=== PATIENT | male | born 1955 | race Caucasian/White ===

== ENCOUNTER 2017-01-12 17:57 | Emergency (ER) | payer OTHER ==
[~2017-01-12] VITALS: Ht 182.9 cm; Wt 109.5 kg
[~2017-01-12 17:57] MED LIST: ACTOS30 MG PO; ASPIR 8181 M1 PO; ASPIR-LOW81 MG PO; ASPIRIN81 M2 PO; BACTRIM,SEPT1 TABLET PO; BICITRA SOLUTI473 ML PO; CARDIZEM CD,CA240 MG PO; CARDIZEM CD120 MG PO; CARDIZEM CD240 MG PO; CELLCEPT250 MG PO; CELLCEPT500 MG PO; CIPROFLOXACIN500 M1 PO; CITRATE OF MAG296 ML PO; CRESTOR10 MG PO; CRESTOR40 MG PO; CYCLOBENZAPRINE10 MG PO; DIABETA5 MG PO; DIAZEPAM5 MG PO; DILAUDID2 MG PO; DIOVAN320 MG PO; FENOFIBRATE40 MG PO; FISH OIL 1,0001 EAC7 PO; GABAPENTIN300 MG PO; HUMALOG100 UNIT/2 SQ; IRON55 MG PO; KEFLEX500 MG PO; LANTUS (UNITS)1 UNIT SC; LANTUS 3 M100 UNITS/ SC; LANTUS 3 M100 UNITS1; LANTUS 3 M100 UNITS1 SC; LANTUS 3 M100 UNITS1 SQ; LASIX20 MG PO; LEXAPRO10 MG PO; LEXAPRO20 MG PO; LISINOPRIL5 MG PO; LOPRESSOR25 MG PO; LOVAZA1 GM PO; METFORMIN HCL500 MG PO; MIRALAX17 GM PO; MULTIVITAMIN1 EAC2 PO; MYFORTIC360 MG PO; NOVOLOG 10100 UNITS/ SC; NOVOLOG MI100 UNIT/4 SQ; NOVOLOG MI100 UNIT/M PO; NOVOLOG PE100 UNITS/ SC; NYSTATIN100000 UN1 PO; OXYCODONE HCL15 MG PO; OXYCODONE-APAP1 EACH PO; OXYCONTIN20 MG PO; OXYCONTIN30 MG PO; OXYCONTIN40 MG PO; PEPCID20 MG PO; PRAVASTATIN SOD40 MG PO; PRENATAL1 EACH PO; PRILOSEC20 MG PO; PROCRIT20000 UNIT IV; PROGRAF1 MG PO; Prograf PO; ROCALTROL0.25 MCG PO; ROCALTROL0.5 MCG PO; Rocaltrol PO; SENNA PLUS TAB1 EACH PO; SENOKOT,SENN1 TABLET PO; TACROLIMUS ANHYD1 MG PO; THERAGRAN1 TABLET PO; TRICOR145 MG PO; TRICOR48 MG PO; VALCYTE450 MG PO; VICODIN ES 7.51 EACH PO; VICODIN ES 71 TABLET PO; VITAMIN D5000 UNIT PO; ZOFRAN ODT4 MG PO
[2017-01-12 19:06] LABS: HEMATOCRIT 35.2 % (38.0-50.0); MCH 26.6 PG (29.0-34.0); MCHC 34.9 G/DL (30.0-36.0); MEAN PLAT.VOLUME 10.4 uM^3 (9.0-12.4); PLATELET COUNT 174 K/uL (156-360); RBC DIS.WIDTH-CV 15.4 % (11.8-14.6); RBC DIS.WIDTH-SD 41.5 % (39-53); RED BLOOD COUNT 4.63 M/uL (4.00-5.50); WHITE BLOOD COUNT 7.1 K/uL (4.1-10.2)
[2017-01-12 19:15] LABS: CHLORIDE 95 mEq/L (99-109); POTASSIUM 4.9 mEq/L (3.7-5.4); SODIUM 130 mEq/L (136-147)
[2017-01-12 19:19] LABS: ANION GAP 15 MEQ/L (2-14); TOTAL BILIRUBIN 0.5 mg/dL (0.0-1.0)
[2017-01-12 19:21] LABS: ALKALINE PHOSPHATASE 157 IU/L (3-129); GFR ESTIMATE (CALCULATED) 35 mL/min/
[2017-01-12 19:22] LABS: UREA NITROGEN (BUN) 33 mg/dL (9-23)
[2017-01-12 19:24] LABS: LIPASE 70 U/L (1.0-51.0)
[2017-01-12 19:35] LABS: GLUCOSE 659 mg/dL (70-99)
[2017-01-12 22:03] LABS: ADD MIUA? YES; BILIRUBIN NEGATIVE; BLOOD SMALL; COLOR YELLOW ((YELLOW)); GLUCOSE (STRIP) >=500; KETONES 5; LEUKOCYTES NEGATIVE; NITRITE NEGATIVE; PROTEIN (STRIP) 100; SPECIFIC GRAVITY 1.026 (1.000-1.030); UROBILINOGEN 0.2 MG/DL (0.2-1.0)
[2017-01-12 22:50] LABS: BACTERIA NONE SEEN /HPF; EPITHELIAL CELLS RARE /HPF; HYALINE CASTS 0-5 /LPF; MUCUS NONE SEEN /LPF; RED BLOOD CELLS 0-5 /HPF (0-5); UCUL ADDED? NO; WHITE BLOOD CELLS 0-5 /HPF (0-5)
[2017-01-12 23:17] LABS: CARBON DIOXIDE (BICARBONATE) 22.7 MEQ/L (20-31)
[2017-01-13 01:22] LABS: POINT-OF-CARE METER ID UU13113702
[2017-01-13 02:21] LABS: CHLORIDE 103 mEq/L (99-109); POTASSIUM 4.2 mEq/L (3.7-5.4); SODIUM 135 mEq/L (136-147)
[2017-01-13 02:23] LABS: GLUCOSE 387 mg/dL (70-99)
[2017-01-13 02:24] LABS: ANION GAP 12 MEQ/L (2-14)
[2017-01-13 02:27] LABS: GFR ESTIMATE (CALCULATED) 44 mL/min/
[2017-01-13 02:28] LABS: UREA NITROGEN (BUN) 31 mg/dL (9-23)
[2017-01-13 05:08] LABS: POINT-OF-CARE METER ID UU13113702
[2017-01-13 05:44] VITALS: BP 190/89
[2017-01-14 12:30] LABS: POINT-OF-CARE METER ID UU13113778
[2017-01-14 12:30] LABS: POINT-OF-CARE METER ID UU13113702; POINT-OF-CARE USER ID HMLKAV
== END 2017-01-13 05:45 | disposition home or self-care (01) ==
LOC: EME 17:57
PROVIDERS: Emergency Medicine
DX: E11.65 Type 2 diabetes mellitus with hyperglycemia (principal); E86.0 Dehydration; E78.5 Hyperlipidemia, unspecified; Z94.0 Kidney transplant status; Z87.891 Personal history of nicotine dependence
CPT/HCPCS: 80048; 80053; 81003; 82010; 82803; 82948; 83690; 85027; 99281; 99285; J7030

== ENCOUNTER 2017-03-31 02:00 | Emergency (ER) | payer OTHER ==
[~2017-03-31] VITALS: Ht 182.9 cm; Wt 116.5 kg
[2017-03-31 05:49] VITALS: BP 123/64
== END 2017-03-31 05:51 | disposition home or self-care (01) ==
LOC: EME 02:00
DX: M54.5 Low back pain (principal); G89.29 Other chronic pain; R11.0 Nausea; I10 Essential (primary) hypertension; E78.5 Hyperlipidemia, unspecified; Z94.0 Kidney transplant status; Z87.891 Personal history of nicotine dependence
CPT/HCPCS: 81003; 99281; 99285; J1170

== ENCOUNTER 2017-06-28 15:37 | Inpatient (IN) | payer OTHER ==
[~2017-06-28] VITALS: Ht 175.3 cm; Wt 113.0 kg
[2017-06-28 18:44] LABS: EOSINOPHIL (%) 0 % (0-5); IMMATURE GRANULOCYTE (%) 0.4 % (0.0-0.7); LYMPHOCYTE COUNT 0.8 K/uL (1.0-2.8); MCH 25.5 PG (29.0-34.0); MCV 82.4 FL (86-99); MEAN PLAT.VOLUME 10.1 uM^3 (9.0-12.4); MONOCYTE (%) 4.2 % (3-12); MONOCYTE COUNT 0.4 K/uL (0-0.8); NEUTROPHIL (%) 86.8 % (45-76); PLATELET COUNT 430 K/uL (156-360); RBC DIS.WIDTH-SD 45.3 % (39-53); RED BLOOD COUNT 3.64 M/uL (4.00-5.50); WHITE BLOOD COUNT 9.2 K/uL (4.1-10.2)
[2017-06-28 18:50] LABS: INTER. NORMALIZED RATIO 1.5; PROTHROMBIN TIME 17.3 SEC (10.2-12.9)
[2017-06-28 18:52] LABS: CARBON DIOXIDE (BICARBONATE) 17.9 MEQ/L (20-31)
[2017-06-28 18:55] LABS: CHLORIDE 100 mEq/L (99-109); POTASSIUM 4.3 mEq/L (3.7-5.4); SODIUM 139 mEq/L (136-147)
[2017-06-28 18:59] LABS: ANION GAP 26 MEQ/L (2-14); TOTAL BILIRUBIN 0.6 mg/dL (0.0-1.0)
[2017-06-28 19:01] LABS: ALKALINE PHOSPHATASE 162 IU/L (3-129); GFR ESTIMATE (CALCULATED) 44 mL/min/
[2017-06-28 19:02] LABS: UREA NITROGEN (BUN) 25 mg/dL (9-23)
[2017-06-28 19:04] LABS: CREATINE KINASE 38 IU/L (1-294); TOTAL CK 38 IU/L (1-294); TROP-I INTERPRETATION NEGATIVE; TROPONIN-I < 0.01 ng/mL (0.0-0.30)
[2017-06-28 19:25] LABS: GLUCOSE 553 mg/dL (70-99)
[2017-06-28] MEDS ORDERED: GABAPENTIN300 MG PO (20:05)
[2017-06-28] MEDS ORDERED: OXYCONTIN30 MG PO (20:06)
[2017-06-28] MEDS ORDERED: DILTIAZEM 24HR120 MG PO (20:08)
[2017-06-28 21:03] LABS: SAMPLE HEMOLYSIS CHECK 0; SAMPLE ICTERIC CHECK 0; SAMPLE LIPEMIA CHECK 0
[2017-06-28 21:13] LABS: Estimated Average Glucose 237 mg/dL (70-123); HEMOGLOBIN A1c (GLYCOHEMOGLOB) 9.9 % HGB (Below 5.7)
[2017-06-28 22:00] VITALS: BP 221/86
[2017-06-28 22:15] VITALS: BP 218/93
[2017-06-28 22:41] LABS: POINT-OF-CARE METER ID UU13113731
[2017-06-28 23:00] VITALS: BP 187/76
[2017-06-28 23:24] LABS: METH RESISTANT S AUREUS PCR NEGATIVE (NEGATIVE)
[2017-06-28 23:26] LABS: PROBE CHECK PASS; SPECIMEN PROCESSING CONTROL PASS
[2017-06-28 23:51] LABS: POINT-OF-CARE METER ID UU13113731
[2017-06-29] VITALS (19 sets, daily range): BP systolic 0–212; BP diastolic 0–96
[2017-06-29 00:49] LABS: POINT-OF-CARE METER ID UU13113731
[2017-06-29 01:15] LABS: CHLORIDE 110 mEq/L (99-109); POTASSIUM 3.8 mEq/L (3.7-5.4)
[2017-06-29 01:17] LABS: GLUCOSE 299 mg/dL (70-99); SODIUM 147 mEq/L (136-147)
[2017-06-29 01:19] LABS: ANION GAP 19 MEQ/L (2-14)
[2017-06-29 01:21] LABS: GFR ESTIMATE (CALCULATED) > 59 mL/min/
[2017-06-29 01:22] LABS: UREA NITROGEN (BUN) 24 mg/dL (9-23)
[2017-06-29 02:03] LABS: POINT-OF-CARE METER ID UU13113803
[2017-06-29 02:50] LABS: POINT-OF-CARE METER ID UU13113803
[2017-06-29 03:58] LABS: POINT-OF-CARE METER ID UU13113803
[2017-06-29 05:04] LABS: POINT-OF-CARE METER ID UU13113803
[2017-06-29 06:01] LABS: POINT-OF-CARE METER ID UU13113803
[2017-06-29 06:36] LABS: ANION GAP 12 MEQ/L (2-14); CHLORIDE 108 MEQ/L (99-109); GFR ESTIMATE (CALCULATED) > 59 mL/min/; GLUCOSE 221 mg/dL (70-99); POTASSIUM 3.5 MEQ/L (3.7-5.4); SAMPLE HEMOLYSIS CHECK 0; SAMPLE ICTERIC CHECK 0; SAMPLE LIPEMIA CHECK 0; SODIUM 142 MEQ/L (136-147); UREA NITROGEN (BUN) 25 mg/dL (9-23)
[2017-06-29 07:21] LABS: POINT-OF-CARE METER ID UU13113803; POINT-OF-CARE USER ID 609231305
[2017-06-29 08:24] LABS: POINT-OF-CARE METER ID UU13113803
[2017-06-29 09:15] LABS: ANION GAP 11 MEQ/L (2-14); CHLORIDE 110 MEQ/L (99-109); GFR ESTIMATE (CALCULATED) > 59 mL/min/; GLUCOSE 144 mg/dL (70-99); POTASSIUM 3.8 MEQ/L (3.7-5.4); SAMPLE HEMOLYSIS CHECK 0; SAMPLE ICTERIC CHECK 0; SAMPLE LIPEMIA CHECK 0; SODIUM 145 MEQ/L (136-147); UREA NITROGEN (BUN) 23 mg/dL (9-23)
[2017-06-29 09:40] LABS: POINT-OF-CARE METER ID UU13113803; POINT-OF-CARE USER ID 606021424
[2017-06-29 10:30] LABS: POINT-OF-CARE METER ID UU13113803
[2017-06-29 10:49] LABS: POINT-OF-CARE METER ID UU13113747
[2017-06-29 10:49] LABS: POINT-OF-CARE METER ID UU13113747
[2017-06-29 10:49] LABS: POINT-OF-CARE METER ID UU13113747
[2017-06-29 11:43] LABS: POINT-OF-CARE METER ID UU13113803
[2017-06-29 12:01] LABS: ADD MIUA? YES; BILIRUBIN NEGATIVE; BLOOD SMALL; COLOR YELLOW ((YELLOW)); GLUCOSE (STRIP) >=500; KETONES 20; LEUKOCYTES NEGATIVE; NITRITE NEGATIVE; PROTEIN (STRIP) 100; SPECIFIC GRAVITY 1.021 (1.000-1.030); UROBILINOGEN 0.2 MG/DL (0.2-1.0)
[2017-06-29 12:13] LABS: BACTERIA NONE SEEN /HPF; EPITHELIAL CELLS RARE /HPF; MUCUS TRACE /LPF; RED BLOOD CELLS 0-5 /HPF (0-5); WHITE BLOOD CELLS 0-5 /HPF (0-5)
[2017-06-29 12:22] LABS: POINT-OF-CARE METER ID UU13113803
[2017-06-29 13:07] LABS: ANION GAP 9 MEQ/L (2-14); CHLORIDE 108 MEQ/L (99-109); GFR ESTIMATE (CALCULATED) > 59 mL/min/; GLUCOSE 179 mg/dL (70-99); POTASSIUM 3.5 MEQ/L (3.7-5.4); SAMPLE HEMOLYSIS CHECK 0; SAMPLE ICTERIC CHECK 0; SAMPLE LIPEMIA CHECK 0; SODIUM 140 MEQ/L (136-147); UREA NITROGEN (BUN) 23 mg/dL (9-23)
[2017-06-29 13:16] LABS: POINT-OF-CARE METER ID UU13113803
[2017-06-29] MEDS ORDERED: LO-DOSE ASPIRIN81 M2 PO (13:29)
[2017-06-29] MEDS ORDERED: LANTUS 10100 UNITS/ SC (13:30)
[2017-06-29] MEDS ORDERED: HUMALOG100 UNIT/1 SC (13:33)
[2017-06-29 14:23] LABS: POINT-OF-CARE METER ID UU13113803
[2017-06-29 16:28] LABS: ANION GAP 11 MEQ/L (2-14); CHLORIDE 106 MEQ/L (99-109); POTASSIUM 3.3 MEQ/L (3.7-5.4); SAMPLE HEMOLYSIS CHECK 0; SAMPLE ICTERIC CHECK 0; SAMPLE LIPEMIA CHECK 0; SODIUM 138 MEQ/L (136-147)
[2017-06-29 16:34] LABS: GFR ESTIMATE (CALCULATED) > 59 mL/min/; GLUCOSE 196 mg/dL (70-99); UREA NITROGEN (BUN) 20 mg/dL (9-23)
[2017-06-29 17:45] LABS: POINT-OF-CARE METER ID UU14174217; POINT-OF-CARE USER ID 606021424
[2017-06-29 22:05] LABS: POINT-OF-CARE METER ID UU13113803
[2017-06-30] VITALS (9 sets, daily range): BP systolic 108–185; BP diastolic 41–74
[2017-06-30 01:33] LABS: POINT-OF-CARE METER ID UU13113803
[2017-06-30 05:40] LABS: EOSINOPHIL (%) 1.4 % (0-5); EOSINOPHIL COUNT 0.1 K/uL (0-0.3); HEMATOCRIT 25.5 % (38.0-50.0); IMMATURE GRANULOCYTE (%) 0.3 % (0.0-0.7); INSTRUMENT ABS NEUTROPHIL CT 5.7 K/uL; LYMPHOCYTE COUNT 1.1 K/uL (1.0-2.8); MCH 26.1 PG (29.0-34.0); MCHC 31.8 G/DL (30.0-36.0); MCV 82.3 FL (86-99); MONOCYTE COUNT 0.6 K/uL (0-0.8); NEUTROPHIL COUNT 5.7 K/uL (1.8-6.4); PLATELET COUNT 349 K/uL (156-360); RBC DIS.WIDTH-CV 15.3 % (11.8-14.6); RBC DIS.WIDTH-SD 45.9 % (39-53); WHITE BLOOD COUNT 7.6 K/uL (4.1-10.2)
[2017-06-30 06:10] LABS: ANION GAP 12 MEQ/L (2-14); CHLORIDE 103 MEQ/L (99-109); GFR ESTIMATE (CALCULATED) > 59 mL/min/; GLUCOSE 151 mg/dL (70-99); POTASSIUM 3.5 MEQ/L (3.7-5.4); SAMPLE HEMOLYSIS CHECK 0; SAMPLE ICTERIC CHECK 0; SAMPLE LIPEMIA CHECK 0; SODIUM 136 MEQ/L (136-147); UREA NITROGEN (BUN) 20 mg/dL (9-23)
[2017-06-30 08:59] LABS: POINT-OF-CARE METER ID UU13113803
[2017-06-30 10:46] LABS: POINT-OF-CARE METER ID UU13113803
[2017-06-30 15:51] LABS: POINT-OF-CARE METER ID UU14188625
[2017-06-30 16:27] LABS: POINT-OF-CARE METER ID UU13113717
[2017-06-30 18:09] LABS: POINT-OF-CARE METER ID UU14188625
[2017-06-30 21:42] LABS: POINT-OF-CARE METER ID UU13113717
[2017-07-01 00:28] VITALS: BP 143/65
[2017-07-01 01:46] LABS: POINT-OF-CARE METER ID UU13113717
[2017-07-01 04:20] VITALS: BP 154/60
[2017-07-01 05:23] LABS: POINT-OF-CARE METER ID UU14188625
[2017-07-01 06:42] LABS: HEMATOCRIT 24.9 % (38.0-50.0); MCH 25.8 PG (29.0-34.0); MCHC 31.7 G/DL (30.0-36.0); MCV 81.4 FL (86-99); PLATELET COUNT 327 K/uL (156-360); RBC DIS.WIDTH-CV 14.8 % (11.8-14.6); RBC DIS.WIDTH-SD 43.8 % (39-53); RED BLOOD COUNT 3.06 M/uL (4.00-5.50)
[2017-07-01 07:17] LABS: ANION GAP 10 MEQ/L (2-14); CHLORIDE 102 MEQ/L (99-109); GFR ESTIMATE (CALCULATED) > 59 mL/min/; POTASSIUM 3.6 MEQ/L (3.7-5.4); SAMPLE HEMOLYSIS CHECK 0; SAMPLE ICTERIC CHECK 0; SAMPLE LIPEMIA CHECK 0; SODIUM 133 MEQ/L (136-147); UREA NITROGEN (BUN) 17 mg/dL (9-23)
[2017-07-01 07:18] LABS: GLUCOSE 235 mg/dL (70-99)
[2017-07-01 08:05] VITALS: BP 119/58
[2017-07-01 11:03] LABS: POINT-OF-CARE METER ID UU13113717
[2017-07-01 11:47] VITALS: BP 159/66
[2017-07-01 12:52] LABS: POINT-OF-CARE METER ID UU14174225
[2017-07-01 16:00] VITALS: BP 149/65
[2017-07-01 17:14] LABS: POINT-OF-CARE METER ID UU14174225
[2017-07-01 20:01] VITALS: BP 138/54
[2017-07-02 00:15] VITALS: BP 125/79
[2017-07-02 06:06] LABS: EOSINOPHIL (%) 1.7 % (0-5); EOSINOPHIL COUNT 0.1 K/uL (0-0.3); HEMATOCRIT 24.7 % (38.0-50.0); IMMATURE GRANULOCYTE (%) 0.5 % (0.0-0.7); INSTRUMENT ABS NEUTROPHIL CT 4.7 K/uL; LYMPHOCYTE COUNT 1.2 K/uL (1.0-2.8); MCH 24.3 PG (29.0-34.0); MCV 81.3 FL (86-99); MEAN PLAT.VOLUME 9.9 uM^3 (9.0-12.4); MONOCYTE (%) 8.8 % (3-12); MONOCYTE COUNT 0.6 K/uL (0-0.8); NEUTROPHIL (%) 71.2 % (45-76); NEUTROPHIL COUNT 4.7 K/uL (1.8-6.4); PLATELET COUNT 283 K/uL (156-360); RBC DIS.WIDTH-CV 14.8 % (11.8-14.6); RBC DIS.WIDTH-SD 44.5 % (39-53); RED BLOOD COUNT 3.04 M/uL (4.00-5.50); WHITE BLOOD COUNT 6.6 K/uL (4.1-10.2)
[2017-07-02 06:44] LABS: ANION GAP 8 MEQ/L (2-14); CHLORIDE 103 MEQ/L (99-109); GFR ESTIMATE (CALCULATED) > 59 mL/min/; GLUCOSE 143 mg/dL (70-99); MAGNESIUM 1.7 mg/dl (1.3-2.7); POTASSIUM 3.6 MEQ/L (3.7-5.4); SAMPLE HEMOLYSIS CHECK 0; SAMPLE ICTERIC CHECK 0; SAMPLE LIPEMIA CHECK 0; SODIUM 132 MEQ/L (136-147); UREA NITROGEN (BUN) 18 mg/dL (9-23)
[2017-07-02 07:28] VITALS: BP 163/70
[2017-07-02 08:12] LABS: IRON 10 MCG/DL (35-150)
[2017-07-02 08:24] LABS: IMM.RETIC FRACTION 8.2 % (3-19); RETIC HGB EQUIVALENT 22.5 (28-36); RETICULOCYTE COUNT 1.6 % (0.5-1.8)
[2017-07-02 08:29] LABS: FERRITIN 123 NG/ML (22-322); LACTATE DEHYDROGENASE 104 IU/L (20-246)
[2017-07-02 11:10] VITALS: BP 148/63
[2017-07-02 15:19] VITALS: BP 132/60
[2017-07-02 19:50] VITALS: BP 129/90
[2017-07-03] VITALS (8 sets, daily range): BP systolic 115–156; BP diastolic 50–77
[2017-07-03 06:50] LABS: EOSINOPHIL (%) 2.7 % (0-5); EOSINOPHIL COUNT 0.2 K/uL (0-0.3); HEMATOCRIT 25.9 % (38.0-50.0); IMMATURE GRANULOCYTE (%) 0.5 % (0.0-0.7); INSTRUMENT ABS NEUTROPHIL CT 5.3 K/uL; LYMPHOCYTE COUNT 1.4 K/uL (1.0-2.8); MCH 24.5 PG (29.0-34.0); MCHC 30.1 G/DL (30.0-36.0); MCV 81.4 FL (86-99); MEAN PLAT.VOLUME 10.3 uM^3 (9.0-12.4); MONOCYTE (%) 8.6 % (3-12); MONOCYTE COUNT 0.7 K/uL (0-0.8); NEUTROPHIL (%) 69.6 % (45-76); NEUTROPHIL COUNT 5.3 K/uL (1.8-6.4); PLATELET COUNT 311 K/uL (156-360); RBC DIS.WIDTH-CV 14.7 % (11.8-14.6); RBC DIS.WIDTH-SD 44.3 % (39-53); RED BLOOD COUNT 3.18 M/uL (4.00-5.50); WHITE BLOOD COUNT 7.7 K/uL (4.1-10.2)
[2017-07-03 07:09] LABS: ANION GAP 12 MEQ/L (2-14); CHLORIDE 104 MEQ/L (99-109); GFR ESTIMATE (CALCULATED) > 59 mL/min/; GLUCOSE 154 mg/dL (70-99); POTASSIUM 4.1 MEQ/L (3.7-5.4); SAMPLE HEMOLYSIS CHECK 0; SAMPLE ICTERIC CHECK 0; SAMPLE LIPEMIA CHECK 0; SODIUM 135 MEQ/L (136-147); UREA NITROGEN (BUN) 15 mg/dL (9-23)
[2017-07-03 20:52] LABS: POINT-OF-CARE METER ID UU13113717
[2017-07-03 20:58] LABS: POINT-OF-CARE METER ID UU14188625; POINT-OF-CARE USER ID 603211116
[2017-07-04 04:29] VITALS: BP 142/67
[2017-07-04 06:49] LABS: EOSINOPHIL (%) 6.6 % (0-5); EOSINOPHIL COUNT 0.4 K/uL (0-0.3); IMMATURE GRANULOCYTE (%) 0.7 % (0.0-0.7); INSTRUMENT ABS NEUTROPHIL CT 3.7 K/uL; LYMPHOCYTE COUNT 1.3 K/uL (1.0-2.8); MCH 25.6 PG (29.0-34.0); MCHC 31.6 G/DL (30.0-36.0); MCV 81.2 FL (86-99); MEAN PLAT.VOLUME 10.7 uM^3 (9.0-12.4); MONOCYTE (%) 10.3 % (3-12); MONOCYTE COUNT 0.6 K/uL (0-0.8); NEUTROPHIL (%) 60.7 % (45-76); NEUTROPHIL COUNT 3.7 K/uL (1.8-6.4); NRBC (%) 0.3 /100 WBC (0-0); PLATELET COUNT 299 K/uL (156-360); RBC DIS.WIDTH-SD 44.3 % (39-53); RED BLOOD COUNT 3.08 M/uL (4.00-5.50)
[2017-07-04 07:05] LABS: ANION GAP 11 MEQ/L (2-14); CHLORIDE 105 MEQ/L (99-109); MAGNESIUM 1.5 mg/dl (1.3-2.7); POTASSIUM 4.2 MEQ/L (3.7-5.4); SAMPLE HEMOLYSIS CHECK 0; SAMPLE ICTERIC CHECK 0; SAMPLE LIPEMIA CHECK 0; SODIUM 135 MEQ/L (136-147)
[2017-07-04 07:10] LABS: GFR ESTIMATE (CALCULATED) > 59 mL/min/; GLUCOSE 221 mg/dL (70-99); UREA NITROGEN (BUN) 15 mg/dL (9-23)
[2017-07-04 07:35] VITALS: BP 135/94
[2017-07-04 09:29] LABS: POINT-OF-CARE METER ID UU13113717
[2017-07-04 11:56] VITALS: BP 136/89
[2017-07-04 11:59] LABS: POINT-OF-CARE METER ID UU13113717
[2017-07-04 16:00] VITALS: BP 144/60
[2017-07-04 20:11] VITALS: BP 147/65
[2017-07-04 20:56] LABS: POINT-OF-CARE METER ID UU14188625
[2017-07-05 00:43] VITALS: BP 145/82
[2017-07-05 04:29] VITALS: BP 150/79
[2017-07-05 04:30] LABS: INTERNAL CONTROL VALID? YES
[2017-07-05 06:12] LABS: EOSINOPHIL (%) 3.6 % (0-5); EOSINOPHIL COUNT 0.2 K/uL (0-0.3); HEMATOCRIT 25.1 % (38.0-50.0); IMMATURE GRANULOCYTE (%) 0.5 % (0.0-0.7); INSTRUMENT ABS NEUTROPHIL CT 3.6 K/uL; LYMPHOCYTE COUNT 1.3 K/uL (1.0-2.8); MCH 24.4 PG (29.0-34.0); MCHC 30.7 G/DL (30.0-36.0); MCV 79.4 FL (86-99); MEAN PLAT.VOLUME 10.2 uM^3 (9.0-12.4); MONOCYTE (%) 9.4 % (3-12); MONOCYTE COUNT 0.5 K/uL (0-0.8); NEUTROPHIL (%) 63.1 % (45-76); NEUTROPHIL COUNT 3.6 K/uL (1.8-6.4); PLATELET COUNT 263 K/uL (156-360); RBC DIS.WIDTH-CV 14.6 % (11.8-14.6); RBC DIS.WIDTH-SD 42.9 % (39-53); RED BLOOD COUNT 3.16 M/uL (4.00-5.50); WHITE BLOOD COUNT 5.8 K/uL (4.1-10.2)
[2017-07-05 06:37] LABS: ANION GAP 13 MEQ/L (2-14); CHLORIDE 103 MEQ/L (99-109); GFR ESTIMATE (CALCULATED) > 59 mL/min/; GLUCOSE 269 mg/dL (70-99); MAGNESIUM 1.3 mg/dl (1.3-2.7); POTASSIUM 4.3 MEQ/L (3.7-5.4); SAMPLE HEMOLYSIS CHECK 0; SAMPLE ICTERIC CHECK 0; SAMPLE LIPEMIA CHECK 0; SODIUM 134 MEQ/L (136-147); UREA NITROGEN (BUN) 10 mg/dL (9-23)
[2017-07-05 08:06] VITALS: BP 186/81
[2017-07-05 10:51] VITALS: BP 124/58
[2017-07-05 15:53] VITALS: BP 176/68
[2017-07-05 17:03] LABS: POINT-OF-CARE METER ID UU14188625
[2017-07-05 21:10] LABS: POINT-OF-CARE METER ID UU14188625
[2017-07-05 23:23] VITALS: BP 151/67
[2017-07-06 08:12] VITALS: BP 156/82
[2017-07-06 08:44] LABS: HEMATOCRIT 25.2 % (38.0-50.0); MCH 24.4 PG (29.0-34.0); MCHC 30.6 G/DL (30.0-36.0); PLATELET COUNT 269 K/uL (156-360); RBC DIS.WIDTH-CV 14.8 % (11.8-14.6); RBC DIS.WIDTH-SD 42.9 % (39-53); RED BLOOD COUNT 3.15 M/uL (4.00-5.50); WHITE BLOOD COUNT 5.4 K/uL (4.1-10.2)
[2017-07-06 12:19] LABS: POINT-OF-CARE METER ID UU13113717
[2017-07-06 16:00] VITALS: BP 147/78
[2017-07-06 17:15] LABS: POINT-OF-CARE METER ID UU14188625
[2017-07-06 20:54] LABS: POINT-OF-CARE METER ID UU13113717
[2017-07-06 23:46] VITALS: BP 138/61
[2017-07-07 08:10] LABS: POINT-OF-CARE METER ID UU14174225
[2017-07-07 08:42] VITALS: BP 144/71
[2017-07-07 12:26] LABS: POINT-OF-CARE METER ID UU13113717
[2017-07-07 17:41] LABS: POINT-OF-CARE METER ID UU13113717
[2017-07-07 21:20] LABS: POINT-OF-CARE METER ID UU14174225
[2017-07-07 23:46] VITALS: BP 177/74
[2017-07-08 06:22] LABS: HEMATOCRIT 23.8 % (38.0-50.0); MCH 24.3 PG (29.0-34.0); MCHC 30.3 G/DL (30.0-36.0); MCV 80.4 FL (86-99); MEAN PLAT.VOLUME 9.7 uM^3 (9.0-12.4); PLATELET COUNT 282 K/uL (156-360); RBC DIS.WIDTH-CV 15.3 % (11.8-14.6); RBC DIS.WIDTH-SD 44.3 % (39-53); RED BLOOD COUNT 2.96 M/uL (4.00-5.50); WHITE BLOOD COUNT 6.1 K/uL (4.1-10.2)
[2017-07-08 07:54] LABS: POINT-OF-CARE METER ID UU14174225
[2017-07-08 08:25] VITALS: BP 138/72
[2017-07-08 12:47] LABS: HEMATOCRIT 24.8 % (38.0-50.0); MCV 80.5 FL (86-99)
[2017-07-08 16:11] VITALS: BP 145/69
[2017-07-08 16:55] LABS: POINT-OF-CARE METER ID UU13113717
[2017-07-08 21:16] LABS: POINT-OF-CARE METER ID UU13113717
[2017-07-08 23:32] VITALS: BP 136/62
[2017-07-09 08:29] VITALS: BP 128/65
[2017-07-09 08:58] LABS: HEMATOCRIT 23.9 % (38.0-50.0); MCH 24.7 PG (29.0-34.0); MCV 79.7 FL (86-99); PLATELET COUNT 242 K/uL (156-360); RBC DIS.WIDTH-CV 15.4 % (11.8-14.6); RBC DIS.WIDTH-SD 44.1 % (39-53); WHITE BLOOD COUNT 6.7 K/uL (4.1-10.2)
[2017-07-09 12:15] LABS: POINT-OF-CARE METER ID UU14188625
[2017-07-09 15:28] VITALS: BP 139/63
[2017-07-09 17:06] LABS: POINT-OF-CARE METER ID UU14188625
[2017-07-09 23:25] VITALS: BP 144/62
[2017-07-10 07:49] VITALS: BP 150/65
[2017-07-10 15:53] VITALS: BP 118/64
[2017-07-10 17:01] LABS: POINT-OF-CARE METER ID UU13113717
[2017-07-10 21:45] VITALS: BP 164/71
[2017-07-10 21:45] LABS: POINT-OF-CARE METER ID UU14188625
[2017-07-10 23:37] VITALS: BP 162/76
[2017-07-11 06:24] LABS: HEMATOCRIT 23.7 % (38.0-50.0); MCH 24.9 PG (29.0-34.0); MCHC 31.2 G/DL (30.0-36.0); MCV 79.8 FL (86-99); MEAN PLAT.VOLUME 9.7 uM^3 (9.0-12.4); PLATELET COUNT 260 K/uL (156-360); RBC DIS.WIDTH-CV 15.9 % (11.8-14.6); RBC DIS.WIDTH-SD 45.6 % (39-53); RED BLOOD COUNT 2.97 M/uL (4.00-5.50); WHITE BLOOD COUNT 6.9 K/uL (4.1-10.2)
[2017-07-11 08:18] LABS: POINT-OF-CARE METER ID UU14188625
[2017-07-11 08:22] VITALS: BP 134/63
[2017-07-11 16:07] VITALS: BP 130/59
[2017-07-11 23:33] VITALS: BP 114/57
[2017-07-12 06:06] LABS: HEMATOCRIT 23.8 % (38.0-50.0); MCH 24.9 PG (29.0-34.0); MCHC 31.1 G/DL (30.0-36.0); MCV 80.1 FL (86-99); MEAN PLAT.VOLUME 9.7 uM^3 (9.0-12.4); PLATELET COUNT 290 K/uL (156-360); RBC DIS.WIDTH-CV 16.2 % (11.8-14.6); RBC DIS.WIDTH-SD 46.1 % (39-53); RED BLOOD COUNT 2.97 M/uL (4.00-5.50); WHITE BLOOD COUNT 7.4 K/uL (4.1-10.2)
[2017-07-12 06:30] LABS: ANION GAP 10 MEQ/L (2-14); CHLORIDE 101 MEQ/L (99-109); GFR ESTIMATE (CALCULATED) > 59 mL/min/; GLUCOSE 191 mg/dL (70-99); POTASSIUM 4.7 MEQ/L (3.7-5.4); SAMPLE HEMOLYSIS CHECK 0; SAMPLE ICTERIC CHECK 0; SAMPLE LIPEMIA CHECK 0; SODIUM 133 MEQ/L (136-147); UREA NITROGEN (BUN) 11 mg/dL (9-23)
[2017-07-12 07:15] VITALS: BP 143/67
[2017-07-12 16:39] LABS: POINT-OF-CARE METER ID UU13113675
[2017-07-12 21:41] LABS: POINT-OF-CARE METER ID UU14188625
[2017-07-13] VITALS: BP 139/61
[2017-07-13 07:08] LABS: ANION GAP 10 MEQ/L (2-14); CHLORIDE 101 MEQ/L (99-109); GFR ESTIMATE (CALCULATED) > 59 mL/min/; GLUCOSE 211 mg/dL (70-99); POTASSIUM 4.9 MEQ/L (3.7-5.4); SAMPLE HEMOLYSIS CHECK 0; SAMPLE ICTERIC CHECK 0; SAMPLE LIPEMIA CHECK 0; SODIUM 134 MEQ/L (136-147); UREA NITROGEN (BUN) 11 mg/dL (9-23)
[2017-07-13 08:12] LABS: POINT-OF-CARE METER ID UU13113717
[2017-07-13 08:20] VITALS: BP 156/72
[2017-07-13 17:07] LABS: POINT-OF-CARE METER ID UU14188625
[2017-07-13 17:20] VITALS: BP 138/74
[2017-07-13 21:40] VITALS: BP 140/654
[2017-07-13 21:48] LABS: POINT-OF-CARE METER ID UU13113717
[2017-07-13 23:43] VITALS: BP 135/60
[2017-07-14 07:33] LABS: POINT-OF-CARE METER ID UU14188625
[2017-07-14 08:25] VITALS: BP 176/87
[2017-07-14 16:18] VITALS: BP 160/67
[2017-07-14 21:26] LABS: POINT-OF-CARE METER ID UU13113717
[2017-07-15 00:02] VITALS: BP 137/63
[2017-07-15 06:41] LABS: EOSINOPHIL COUNT 0.2 K/uL (0-0.3); HEMATOCRIT 24.5 % (38.0-50.0); IMMATURE GRANULOCYTE (%) 0.4 % (0.0-0.7); INSTRUMENT ABS NEUTROPHIL CT 5.4 K/uL; LYMPHOCYTE COUNT 1.4 K/uL (1.0-2.8); MCH 24.2 PG (29.0-34.0); MCHC 30.6 G/DL (30.0-36.0); MEAN PLAT.VOLUME 9.1 uM^3 (9.0-12.4); MONOCYTE (%) 7.6 % (3-12); MONOCYTE COUNT 0.6 K/uL (0-0.8); NEUTROPHIL (%) 71.8 % (45-76); NEUTROPHIL COUNT 5.4 K/uL (1.8-6.4); PLATELET COUNT 295 K/uL (156-360); RBC DIS.WIDTH-CV 16.5 % (11.8-14.6); RBC DIS.WIDTH-SD 47.2 % (39-53); WHITE BLOOD COUNT 7.5 K/uL (4.1-10.2)
[2017-07-15 07:04] LABS: ANION GAP 13 MEQ/L (2-14); CHLORIDE 100 MEQ/L (99-109); GFR ESTIMATE (CALCULATED) > 59 mL/min/; GLUCOSE 188 mg/dL (70-99); POTASSIUM 4.7 MEQ/L (3.7-5.4); SAMPLE HEMOLYSIS CHECK 0; SAMPLE ICTERIC CHECK 0; SAMPLE LIPEMIA CHECK 0; SODIUM 133 MEQ/L (136-147); UREA NITROGEN (BUN) 13 mg/dL (9-23)
[2017-07-15 08:00] VITALS: BP 157/67
[2017-07-15 12:17] LABS: POINT-OF-CARE METER ID UU13113717
[2017-07-15 16:29] LABS: POINT-OF-CARE METER ID UU13113717
[2017-07-15 16:46] VITALS: BP 180/71
[2017-07-15 21:24] LABS: POINT-OF-CARE METER ID UU14188625
[2017-07-15 21:50] VITALS: BP 128/57
[2017-07-15 23:55] VITALS: BP 139/67
[2017-07-16 07:19] LABS: POINT-OF-CARE METER ID UU14188625
[2017-07-16 07:40] VITALS: BP 133/70
[2017-07-16] MEDS ORDERED: FERROUS SULFAT325 MG PO (10:37)
[2017-07-16] MEDS ORDERED: APRESOLINE25 MG PO (10:38)
[2017-07-16] MEDS ORDERED: NOVOLOG PE100 UNITS/ SC ×2 (10:40→10:41)
[2017-07-16] MEDS ORDERED: LEVEMIR100 UNIT/2 SC (10:40)
[2017-07-16] MEDS ORDERED: OXYCODONE HCL15 MG PO (10:41)
[2017-07-16] MEDS ORDERED: OXYCONTIN10 MG PO (10:41)
[2017-07-16 11:16] LABS: POINT-OF-CARE METER ID UU14188625
== END 2017-07-16 15:59 | DRG 623 ==
LOC: EME 15:37 → 5SOUTH 19:48 → EDOF 19:48 → 4WEST 19:48 → ENRESERV 20:07 → 4WEST 21:40 → ENRESERV 06-30 08:44 → 5SOUTH 06-30 11:28
PROVIDERS: Emergency Medicine; Hospitalist; Internal Medicine; Internal Medicine Critical Care Medicine; Internal Medicine Nephrology; Nurse Practitioner Adult Health; Physician Assistant Medical
PROC: 0HB6XZZ Excision of Back Skin, External Approach (ICD-10-PCS; principal; 2017-07-12)
DX: E13.10 Other specified diabetes mellitus with ketoacidosis without coma (principal); N17.9 Acute kidney failure, unspecified; T81.4XXA Infection following a procedure, initial encounter; L03.312 Cellulitis of back [any part except buttock and flank]; T85.848A Pain due to other internal prosthetic devices, implants and grafts, initial encounter; Y83.1 Surgical operation with implant of artificial internal device as the cause of abnormal reaction of the patient, or of later complication, without mention of misadventure at the time of the procedure; T84.296A Other mechanical complication of internal fixation device of vertebrae, initial encounter; Z94.0 Kidney transplant status; E86.0 Dehydration; T40.601A Poisoning by unspecified narcotics, accidental (unintentional), initial encounter; R41.82 Altered mental status, unspecified; D64.89 Other specified anemias; T45.1X5A Adverse effect of antineoplastic and immunosuppressive drugs, initial encounter; I10 Essential (primary) hypertension; F43.23 Adjustment disorder with mixed anxiety and depressed mood; F60.9 Personality disorder, unspecified; G89.29 Other chronic pain; M54.5 Low back pain; D63.8 Anemia in other chronic diseases classified elsewhere; D50.9 Iron deficiency anemia, unspecified; J32.3 Chronic sphenoidal sinusitis; E78.5 Hyperlipidemia, unspecified; E66.9 Obesity, unspecified; Z68.36 Body mass index [BMI] 36.0-36.9, adult; I45.10 Unspecified right bundle-branch block; M25.551 Pain in right hip; R10.9 Unspecified abdominal pain; I25.10 Atherosclerotic heart disease of native coronary artery without angina pectoris; R26.2 Difficulty in walking, not elsewhere classified; R32 Unspecified urinary incontinence; Z91.19 Patient's noncompliance with other medical treatment and regimen; Z60.2 Problems related to living alone; Z91.81 History of falling; Z85.47 Personal history of malignant neoplasm of testis; Z79.4 Long term (current) use of insulin; Z79.891 Long term (current) use of opiate analgesic; Z87.891 Personal history of nicotine dependence
CPT/HCPCS: 70450; 71010; 72146; 72148; 80048; 80048 91; 80053; 80197 90; 81003; 82010; 82272; 82550; 82553; 82607; 82728; 82746; 82803; 82948; 83036; 83540; 83605; 83615; 83735; 84100; 84466; 84484; 85014; 85018; 85025; 85027; 85045; 85610; 85730; 87040; 87641; 87801; 93005; 97530 GP; 99281; 99285; J0131; J0330; J0360; J0690; J0881; J1170; J1644; J1756; J1815; J2250; J2270; J2405; J3010; J7030; J7050; J7507; J7517

== ENCOUNTER 2017-10-01 00:41 | Emergency (ER) | payer OTHER ==
[~2017-10-01] VITALS: Ht 182.9 cm; Wt 85.7 kg
[~2017-10-01 00:41] MED LIST changes: +APRESOLINE25 MG PO; +DILTIAZEM 24HR120 MG PO; +FERROUS SULFAT325 MG PO; +HUMALOG100 UNIT/1 SC; +LANTUS 10100 UNITS/ SC; +LEVEMIR100 UNIT/2 SC; +LO-DOSE ASPIRIN81 M2 PO; +OXYCONTIN10 MG PO
[2017-10-01 03:27] LABS: EOSINOPHIL COUNT 0.1 K/uL (0-0.3); IMMATURE GRANULOCYTE (%) 0.4 % (0.0-0.7); IMMATURE GRANULOCYTE COUNT 0.1 K/uL; INSTRUMENT ABS NEUTROPHIL CT 9.2 K/uL; LYMPHOCYTE COUNT 1.1 K/uL (1.0-2.8); MCH 24.7 PG (29.0-34.0); MCHC 31.7 G/DL (30.0-36.0); MCV 77.9 FL (86-99); MEAN PLAT.VOLUME 9.7 uM^3 (9.0-12.4); MONOCYTE (%) 5.8 % (3-12); MONOCYTE COUNT 0.6 K/uL (0-0.8); NEUTROPHIL (%) 83.1 % (45-76); NEUTROPHIL COUNT 9.2 K/uL (1.8-6.4); PLATELET COUNT 247 K/uL (156-360); RBC DIS.WIDTH-CV 17.9 % (11.8-14.6); RBC DIS.WIDTH-SD 50.9 % (39-53); RED BLOOD COUNT 3.85 M/uL (4.00-5.50); WHITE BLOOD COUNT 11.1 K/uL (4.1-10.2)
[2017-10-01 03:32] LABS: CHLORIDE 100 mEq/L (99-109); POTASSIUM 4.2 mEq/L (3.7-5.4); SODIUM 137 mEq/L (136-147)
[2017-10-01 03:34] LABS: GLUCOSE 207 mg/dL (70-99)
[2017-10-01 03:35] LABS: ANION GAP 14 MEQ/L (2-14)
[2017-10-01 03:36] LABS: TOTAL BILIRUBIN 0.6 mg/dL (0.0-1.0)
[2017-10-01 03:38] LABS: ALKALINE PHOSPHATASE 143 IU/L (3-129); GFR ESTIMATE (CALCULATED) > 59 mL/min/ (58.99-99999)
[2017-10-01 03:39] LABS: UREA NITROGEN (BUN) 20 mg/dL (9-23)
[2017-10-01 05:56] LABS: ADD MIUA? YES; BILIRUBIN NEGATIVE; BLOOD NEGATIVE; COLOR YELLOW ((YELLOW)); GLUCOSE (STRIP) NEGATIVE; KETONES 5; LEUKOCYTES NEGATIVE; NITRITE NEGATIVE; PROTEIN (STRIP) 100; SPECIFIC GRAVITY 1.019 (1.000-1.030); UROBILINOGEN 0.2 MG/DL (0.2-1.0)
[2017-10-01 06:27] LABS: BACTERIA NONE SEEN /HPF; EPITHELIAL CELLS NONE SEEN /HPF; MUCUS NONE SEEN /LPF; RED BLOOD CELLS 0-5 /HPF (0-5); WHITE BLOOD CELLS 0-5 /HPF (0-5)
[2017-10-01 09:46] VITALS: BP 164/69
== END 2017-10-01 09:46 | disposition short-term general hospital (02) ==
LOC: EME 00:41
PROVIDERS: Emergency Medicine
DX: M46.26 Osteomyelitis of vertebra, lumbar region (principal); M46.46 Discitis, unspecified, lumbar region; G89.29 Other chronic pain; M79.604 Pain in right leg; M79.605 Pain in left leg; R26.2 Difficulty in walking, not elsewhere classified; R11.0 Nausea; R10.31 Right lower quadrant pain; N26.1 Atrophy of kidney (terminal); R16.1 Splenomegaly, not elsewhere classified; I12.9 Hypertensive chronic kidney disease with stage 1 through stage 4 chronic kidney disease, or unspecified chronic kidney disease; N18.9 Chronic kidney disease, unspecified; Z94.0 Kidney transplant status; Z98.1 Arthrodesis status; Z79.82 Long term (current) use of aspirin; Z79.891 Long term (current) use of opiate analgesic; Z85.47 Personal history of malignant neoplasm of testis; Z87.891 Personal history of nicotine dependence
CPT/HCPCS: 72131; 74176; 80053; 81003; 85025; 87040; 99281; 99284; J2270; J2405; J2543; J3010

== ENCOUNTER 2017-10-19 13:17 | Inpatient (IN) | payer OTHER ==
[~2017-10-19] VITALS: Ht 182.9 cm; Wt 82.5 kg
[2017-10-19] MEDS ORDERED: ROXICODONE5 MG PO (13:37)
[2017-10-19] MEDS ORDERED: PROGRAF1 MG PO (13:38)
[2017-10-19] MEDS ORDERED: CELLCEPT250 MG PO (13:38)
[2017-10-19] MEDS ORDERED: FENOGLIDE40 MG PO (13:38)
[2017-10-19] MEDS ORDERED: OXYCONTIN40 MG PO (13:38)
[2017-10-19] MEDS ORDERED: FLEXERIL5 MG PO (13:39)
[2017-10-19] MEDS ORDERED: ASCORBIC ACID250 MG PO (13:39)
[2017-10-19] MEDS ORDERED: COMPAZINE10 MG PO (13:39)
[2017-10-19] MEDS ORDERED: HUMALOG100 UNIT/2 SC (13:40)
[2017-10-19] MEDS ORDERED: LANTUS 3 M100 UNITS1 SC (13:40)
[2017-10-19 14:33] LABS: BASOPHIL (%) 0.1 % (0-1); EOSINOPHIL (%) 0.3 % (0-5); HEMATOCRIT 28.4 % (38.0-50.0); HEMOGLOBIN 9.4 G/DL (12.5-16.6); IMMATURE GRANULOCYTE (%) 0.4 % (0.0-0.7); LYMPHOCYTE COUNT 0.7 K/uL (1.0-2.8); MCH 26.7 PG (29.0-34.0); MCHC 33.1 G/DL (30.0-36.0); MCV 80.7 FL (86-99); MONOCYTE (%) 5.8 % (3-12); MONOCYTE COUNT 0.5 K/uL (0-0.8); NEUTROPHIL (%) 86.4 % (45-76); NEUTROPHIL COUNT 8.1 K/uL (1.8-6.4); PLATELET COUNT 180 K/uL (156-360); RBC DIS.WIDTH-CV 18.6 % (11.8-14.6); RBC DIS.WIDTH-SD 54.9 % (39-53); RED BLOOD COUNT 3.52 M/uL (4.00-5.50); WHITE BLOOD COUNT 9.4 K/uL (4.1-10.2)
[2017-10-19 14:38] LABS: INTER. NORMALIZED RATIO 1.5
[2017-10-19 14:41] LABS: ALBUMIN 3.9 g/dL (3.2-4.8); CHLORIDE 101 mEq/L (99-109); POTASSIUM 4.2 mEq/L (3.7-5.4); PTT 29.9 SEC (25-37); SODIUM 135 mEq/L (136-147)
[2017-10-19 14:43] LABS: GLUCOSE 201 mg/dL (70-99); TOTAL PROTEIN 7.7 g/dL (6.4-8.3)
[2017-10-19 14:45] LABS: TOTAL BILIRUBIN 0.6 mg/dL (0.0-1.0)
[2017-10-19 14:47] LABS: ALKALINE PHOSPHATASE 162 IU/L (3-129); CREATININE 1.4 mg/dL (0.6-1.3); GFR ESTIMATE (CALCULATED) 55 mL/min/ (58.99-99999)
[2017-10-19 14:48] LABS: AST (GOT) 15 IU/L (2-34); UREA NITROGEN (BUN) 29 mg/dL (9-23)
[2017-10-19 14:49] LABS: DIRECT BILIRUBIN 0.4 mg/dL (0.0-0.3)
[2017-10-19 14:50] LABS: ALT (GPT) 18 IU/L (3-49); LIPASE 10 U/L (1.0-51.0)
[2017-10-19 14:56] LABS: TROP-I INTERPRETATION NEGATIVE; TROPONIN-I < 0.01 ng/mL (0.0-0.30)
[2017-10-19] MEDS ORDERED: OXYCONTIN10 MG PO (17:59)
[2017-10-19] MEDS ORDERED: VANCOMYCIN1 GM/150 M IV (18:00)
[2017-10-19] MEDS ORDERED: ROCEPHIN2 GM/50 ML IV (18:01)
[2017-10-19 20:13] VITALS: BP 178/79
[2017-10-19 23:53] VITALS: BP 177/82
[2017-10-20 04:11] VITALS: BP 163/83
[2017-10-20 08:04] VITALS: BP 171/80
[2017-10-20 10:15] LABS: HEMATOCRIT 26.7 % (38.0-50.0); HEMOGLOBIN 8.6 G/DL (12.5-16.6); MCH 26.4 PG (29.0-34.0); MCHC 32.2 G/DL (30.0-36.0); MCV 81.9 FL (86-99); PLATELET COUNT 187 K/uL (156-360); RBC DIS.WIDTH-CV 18.5 % (11.8-14.6); RBC DIS.WIDTH-SD 54.8 % (39-53); RED BLOOD COUNT 3.26 M/uL (4.00-5.50); WHITE BLOOD COUNT 6.5 K/uL (4.1-10.2)
[2017-10-20 10:46] LABS: CHLORIDE 104 MEQ/L (99-109); GFR ESTIMATE (CALCULATED) > 59 mL/min/ (58.99-99999); POTASSIUM 3.7 MEQ/L (3.7-5.4); SODIUM 137 MEQ/L (136-147); UREA NITROGEN (BUN) 20 mg/dL (9-23)
[2017-10-20 10:47] LABS: CREATININE 0.9 MG/DL (0.6-1.3); GLUCOSE 116 mg/dL (70-99)
[2017-10-20 11:38] VITALS: BP 156/73
[2017-10-20 15:06] VITALS: BP 155/68
[2017-10-21 00:17] VITALS: BP 151/67
[2017-10-21 07:59] VITALS: BP 192/88
[2017-10-21 08:39] VITALS: BP 152/68
[2017-10-21 15:54] VITALS: BP 161/73
[2017-10-22 00:04] VITALS: BP 180/82
[2017-10-22 04:09] VITALS: BP 179/86
[2017-10-22 08:43] VITALS: BP 165/73
[2017-10-22 09:16] LABS: HEMATOCRIT 27.4 % (38.0-50.0); HEMOGLOBIN 8.9 G/DL (12.5-16.6); MCH 26.4 PG (29.0-34.0); MCHC 32.5 G/DL (30.0-36.0); MCV 81.3 FL (86-99); PLATELET COUNT 205 K/uL (156-360); RBC DIS.WIDTH-CV 17.5 % (11.8-14.6); RBC DIS.WIDTH-SD 52.4 % (39-53); RED BLOOD COUNT 3.37 M/uL (4.00-5.50); WHITE BLOOD COUNT 4.9 K/uL (4.1-10.2)
[2017-10-22 09:51] LABS: CHLORIDE 105 MEQ/L (99-109); CREATININE 0.8 MG/DL (0.6-1.3); GFR ESTIMATE (CALCULATED) > 59 mL/min/ (58.99-99999); GLUCOSE 163 mg/dL (70-99); POTASSIUM 3.8 MEQ/L (3.7-5.4); SODIUM 138 MEQ/L (136-147); UREA NITROGEN (BUN) 10 mg/dL (9-23)
[2017-10-22 10:36] VITALS: BP 166/75
[2017-10-22 20:08] VITALS: BP 194/83
[2017-10-22 22:58] VITALS: BP 186/77
[2017-10-23 05:22] VITALS: BP 191/84
[2017-10-23 07:35] VITALS: BP 172/80; BP 180/83
[2017-10-23 15:55] VITALS: BP 160/70
[2017-10-23 19:10] VITALS: BP 166/74
[2017-10-23 23:25] VITALS: BP 165/72
[2017-10-24 05:58] LABS: BASOPHIL (%) 0.5 % (0-1); EOSINOPHIL (%) 3.9 % (0-5); EOSINOPHIL COUNT 0.2 K/uL (0-0.3); HEMATOCRIT 28.4 % (38.0-50.0); HEMOGLOBIN 9.1 G/DL (12.5-16.6); IMMATURE GRANULOCYTE (%) 0.3 % (0.0-0.7); LYMPHOCYTE COUNT 1.1 K/uL (1.0-2.8); MCV 81.1 FL (86-99); MONOCYTE (%) 7.1 % (3-12); MONOCYTE COUNT 0.4 K/uL (0-0.8); NEUTROPHIL (%) 69.2 % (45-76); NEUTROPHIL COUNT 4.1 K/uL (1.8-6.4); PLATELET COUNT 229 K/uL (156-360); RBC DIS.WIDTH-CV 17.6 % (11.8-14.6); RBC DIS.WIDTH-SD 52.3 % (39-53); WHITE BLOOD COUNT 5.9 K/uL (4.1-10.2)
[2017-10-24 06:32] LABS: ALBUMIN 3.3 G/DL (3.2-4.8); ALKALINE PHOSPHATASE 216 IU/L (3-129); ALT (GPT) 27 IU/L (3-49); AST (GOT) 42 IU/L (2-34); CHLORIDE 106 MEQ/L (99-109); CREATININE 0.9 MG/DL (0.6-1.3); GFR ESTIMATE (CALCULATED) > 59 mL/min/ (58.99-99999); GLUCOSE 147 mg/dL (70-99); POTASSIUM 3.9 MEQ/L (3.7-5.4); SODIUM 139 MEQ/L (136-147); TOTAL BILIRUBIN 0.4 MG/DL (0.0-1.0); TOTAL PROTEIN 6.1 G/DL (6.4-8.3); UREA NITROGEN (BUN) 10 mg/dL (9-23)
[2017-10-24 08:20] VITALS: BP 156/67
[2017-10-24 15:34] VITALS: BP 142/68
[2017-10-24 23:14] VITALS: BP 138/62
[2017-10-25 07:47] VITALS: BP 147/66
[2017-10-25 16:28] VITALS: BP 142/67
[2017-10-25 23:12] VITALS: BP 170/74
[2017-10-26 08:05] VITALS: BP 172/79
[2017-10-26 12:25] LABS: BASOPHIL (%) 0.4 % (0-1); EOSINOPHIL (%) 5.5 % (0-5); EOSINOPHIL COUNT 0.3 K/uL (0-0.3); HEMATOCRIT 29.1 % (38.0-50.0); HEMOGLOBIN 9.1 G/DL (12.5-16.6); IMMATURE GRANULOCYTE (%) 0.2 % (0.0-0.7); LYMPHOCYTE (%) 24.6 % (15-42); LYMPHOCYTE COUNT 1.3 K/uL (1.0-2.8); MCH 25.6 PG (29.0-34.0); MCHC 31.3 G/DL (30.0-36.0); MONOCYTE (%) 6.9 % (3-12); MONOCYTE COUNT 0.4 K/uL (0-0.8); NEUTROPHIL (%) 62.4 % (45-76); NEUTROPHIL COUNT 3.3 K/uL (1.8-6.4); PLATELET COUNT 248 K/uL (156-360); RBC DIS.WIDTH-CV 17.5 % (11.8-14.6); RBC DIS.WIDTH-SD 52.6 % (39-53); RED BLOOD COUNT 3.55 M/uL (4.00-5.50); WHITE BLOOD COUNT 5.2 K/uL (4.1-10.2)
[2017-10-26 13:11] LABS: ALBUMIN 3.5 G/DL (3.2-4.8); ALKALINE PHOSPHATASE 205 IU/L (3-129); ALT (GPT) 18 IU/L (3-49); CHLORIDE 104 MEQ/L (99-109); CREATININE 1.1 MG/DL (0.6-1.3); GFR ESTIMATE (CALCULATED) > 59 mL/min/ (58.99-99999); GLUCOSE 154 mg/dL (70-99); SODIUM 135 MEQ/L (136-147); TOTAL BILIRUBIN 0.4 MG/DL (0.0-1.0); TOTAL PROTEIN 6.1 G/DL (6.4-8.3); UREA NITROGEN (BUN) 10 mg/dL (9-23)
[2017-10-26 13:12] LABS: AST (GOT) 12 IU/L (2-34)
[2017-10-26 16:05] VITALS: BP 140/65
[2017-10-26 23:36] VITALS: BP 169/75
[2017-10-27 01:04] VITALS: BP 130/62
[2017-10-27 07:14] LABS: BASOPHIL (%) 0.6 % (0-1); EOSINOPHIL (%) 5.8 % (0-5); EOSINOPHIL COUNT 0.3 K/uL (0-0.3); HEMATOCRIT 28.8 % (38.0-50.0); HEMOGLOBIN 9.2 G/DL (12.5-16.6); IMMATURE GRANULOCYTE (%) 0.4 % (0.0-0.7); LYMPHOCYTE COUNT 1.4 K/uL (1.0-2.8); MCH 26.3 PG (29.0-34.0); MCHC 31.9 G/DL (30.0-36.0); MCV 82.3 FL (86-99); MONOCYTE (%) 7.6 % (3-12); MONOCYTE COUNT 0.4 K/uL (0-0.8); NEUTROPHIL (%) 59.6 % (45-76); NEUTROPHIL COUNT 3.2 K/uL (1.8-6.4); PLATELET COUNT 247 K/uL (156-360); RBC DIS.WIDTH-CV 17.4 % (11.8-14.6); RBC DIS.WIDTH-SD 51.8 % (39-53); WHITE BLOOD COUNT 5.4 K/uL (4.1-10.2)
[2017-10-27 07:44] LABS: ALBUMIN 3.6 G/DL (3.2-4.8); ALKALINE PHOSPHATASE 191 IU/L (3-129); ALT (GPT) 15 IU/L (3-49); AST (GOT) 11 IU/L (2-34); CHLORIDE 105 MEQ/L (99-109); CREATININE 1.1 MG/DL (0.6-1.3); GFR ESTIMATE (CALCULATED) > 59 mL/min/ (58.99-99999); POTASSIUM 4.1 MEQ/L (3.7-5.4); SODIUM 137 MEQ/L (136-147); TOTAL PROTEIN 6.3 G/DL (6.4-8.3); UREA NITROGEN (BUN) 11 mg/dL (9-23)
[2017-10-27 07:45] LABS: GLUCOSE 90 mg/dL (70-99); TOTAL BILIRUBIN 0.3 MG/DL (0.0-1.0)
[2017-10-27 07:47] VITALS: BP 148/72
[2017-10-27 09:39] LABS: INTER. NORMALIZED RATIO 1.3
[2017-10-27 09:42] LABS: PTT 31.1 SEC (25-37)
[2017-10-27 17:01] VITALS: BP 125/60
[2017-10-28 00:05] VITALS: BP 131/82
[2017-10-28 06:10] LABS: HEMATOCRIT 27.3 % (38.0-50.0); HEMOGLOBIN 8.8 G/DL (12.5-16.6); MCH 26.8 PG (29.0-34.0); MCHC 32.2 G/DL (30.0-36.0); MCV 83.2 FL (86-99); PLATELET COUNT 181 K/uL (156-360); RBC DIS.WIDTH-CV 17.2 % (11.8-14.6); RBC DIS.WIDTH-SD 52.4 % (39-53); RED BLOOD COUNT 3.28 M/uL (4.00-5.50); WHITE BLOOD COUNT 5.3 K/uL (4.1-10.2)
[2017-10-28 06:42] LABS: ALBUMIN 3.3 G/DL (3.2-4.8); CHLORIDE 103 MEQ/L (99-109); CREATININE 1.2 MG/DL (0.6-1.3); GFR ESTIMATE (CALCULATED) > 59 mL/min/ (58.99-99999); POTASSIUM 3.9 MEQ/L (3.7-5.4); SODIUM 137 MEQ/L (136-147); UREA NITROGEN (BUN) 11 mg/dL (9-23)
[2017-10-28 06:43] LABS: ALKALINE PHOSPHATASE 294 IU/L (3-129); ALT (GPT) 73 IU/L (3-49); AST (GOT) 117 IU/L (2-34); GLUCOSE 150 mg/dL (70-99); TOTAL BILIRUBIN 1.6 MG/DL (0.0-1.0)
[2017-10-28 08:00] VITALS: BP 138/63
[2017-10-28 15:35] VITALS: BP 126/82
[2017-10-29 00:12] VITALS: BP 174/73
[2017-10-29 08:10] VITALS: BP 174/82
[2017-10-29 09:39] LABS: BASOPHIL (%) 0.2 % (0-1); EOSINOPHIL (%) 4.8 % (0-5); EOSINOPHIL COUNT 0.2 K/uL (0-0.3); HEMATOCRIT 28.2 % (38.0-50.0); HEMOGLOBIN 9.2 G/DL (12.5-16.6); IMMATURE GRANULOCYTE (%) 0.4 % (0.0-0.7); LYMPHOCYTE (%) 15.3 % (15-42); LYMPHOCYTE COUNT 0.7 K/uL (1.0-2.8); MCH 26.9 PG (29.0-34.0); MCHC 32.6 G/DL (30.0-36.0); MCV 82.5 FL (86-99); MONOCYTE (%) 10.2 % (3-12); MONOCYTE COUNT 0.5 K/uL (0-0.8); NEUTROPHIL (%) 69.1 % (45-76); NEUTROPHIL COUNT 3.2 K/uL (1.8-6.4); PLATELET COUNT 176 K/uL (156-360); RBC DIS.WIDTH-SD 50.8 % (39-53); RED BLOOD COUNT 3.42 M/uL (4.00-5.50); WHITE BLOOD COUNT 4.6 K/uL (4.1-10.2)
[2017-10-29 10:41] LABS: ALBUMIN 3.3 G/DL (3.2-4.8); ALKALINE PHOSPHATASE 333 IU/L (3-129); ALT (GPT) 89 IU/L (3-49); AST (GOT) 77 IU/L (2-34); CHLORIDE 103 MEQ/L (99-109); CREATININE 1.2 MG/DL (0.6-1.3); GFR ESTIMATE (CALCULATED) > 59 mL/min/ (58.99-99999); POTASSIUM 4.2 MEQ/L (3.7-5.4); SODIUM 137 MEQ/L (136-147); UREA NITROGEN (BUN) 9 mg/dL (9-23)
[2017-10-29 10:43] LABS: GLUCOSE 103 mg/dL (70-99); TOTAL BILIRUBIN 0.9 MG/DL (0.0-1.0)
[2017-10-29 11:13] LABS: ALBUMIN 3.3 G/DL (3.2-4.8); ALKALINE PHOSPHATASE 333 IU/L (3-129); ALT (GPT) 89 IU/L (3-49); AST (GOT) 77 IU/L (2-34); DIRECT BILIRUBIN 0.4 mg/dL (0.0-0.3); TOTAL BILIRUBIN 0.9 MG/DL (0.0-1.0)
[2017-10-29 17:40] VITALS: BP 145/67
[2017-10-30 00:28] VITALS: BP 146/67
[2017-10-30 07:36] VITALS: BP 137/65
[2017-10-30 08:24] LABS: BASOPHIL (%) 0.6 % (0-1); EOSINOPHIL (%) 5.1 % (0-5); EOSINOPHIL COUNT 0.2 K/uL (0-0.3); HEMATOCRIT 28.5 % (38.0-50.0); HEMOGLOBIN 9.1 G/DL (12.5-16.6); IMMATURE GRANULOCYTE (%) 0.4 % (0.0-0.7); LYMPHOCYTE (%) 16.7 % (15-42); LYMPHOCYTE COUNT 0.8 K/uL (1.0-2.8); MCH 26.5 PG (29.0-34.0); MCHC 31.9 G/DL (30.0-36.0); MCV 83.1 FL (86-99); MONOCYTE (%) 11.7 % (3-12); MONOCYTE COUNT 0.6 K/uL (0-0.8); NEUTROPHIL (%) 65.5 % (45-76); NEUTROPHIL COUNT 3.1 K/uL (1.8-6.4); PLATELET COUNT 205 K/uL (156-360); RBC DIS.WIDTH-CV 17.2 % (11.8-14.6); RBC DIS.WIDTH-SD 52.3 % (39-53); RED BLOOD COUNT 3.43 M/uL (4.00-5.50); WHITE BLOOD COUNT 4.7 K/uL (4.1-10.2)
[2017-10-30 09:03] LABS: ALBUMIN 3.5 G/DL (3.2-4.8); ALKALINE PHOSPHATASE 351 IU/L (3-129); ALT (GPT) 69 IU/L (3-49); CHLORIDE 104 MEQ/L (99-109); CREATININE 1.1 MG/DL (0.6-1.3); DIRECT BILIRUBIN 0.3 mg/dL (0.0-0.3); GFR ESTIMATE (CALCULATED) > 59 mL/min/ (58.99-99999); GLUCOSE 91 mg/dL (70-99); POTASSIUM 3.9 MEQ/L (3.7-5.4); SODIUM 139 MEQ/L (136-147); TOTAL PROTEIN 6.2 G/DL (6.4-8.3); UREA NITROGEN (BUN) 8 mg/dL (9-23)
[2017-10-30 09:06] LABS: AST (GOT) 40 IU/L (2-34); TOTAL BILIRUBIN 0.6 MG/DL (0.0-1.0)
[2017-10-30 17:08] VITALS: BP 149/69
[2017-10-31 00:15] VITALS: BP 147/69
[2017-10-31 05:39] LABS: BASOPHIL (%) 0.3 % (0-1); EOSINOPHIL (%) 4.5 % (0-5); EOSINOPHIL COUNT 0.3 K/uL (0-0.3); HEMATOCRIT 28.1 % (38.0-50.0); HEMOGLOBIN 8.9 G/DL (12.5-16.6); IMMATURE GRANULOCYTE (%) 0.3 % (0.0-0.7); LYMPHOCYTE (%) 14.5 % (15-42); LYMPHOCYTE COUNT 0.8 K/uL (1.0-2.8); MCH 26.5 PG (29.0-34.0); MCHC 31.7 G/DL (30.0-36.0); MCV 83.6 FL (86-99); MONOCYTE (%) 7.6 % (3-12); MONOCYTE COUNT 0.4 K/uL (0-0.8); NEUTROPHIL (%) 72.8 % (45-76); NEUTROPHIL COUNT 4.2 K/uL (1.8-6.4); PLATELET COUNT 229 K/uL (156-360); RBC DIS.WIDTH-SD 52.4 % (39-53); RED BLOOD COUNT 3.36 M/uL (4.00-5.50); WHITE BLOOD COUNT 5.8 K/uL (4.1-10.2)
[2017-10-31 06:06] LABS: CHLORIDE 103 MEQ/L (99-109); CREATININE 1.2 MG/DL (0.6-1.3); GFR ESTIMATE (CALCULATED) > 59 mL/min/ (58.99-99999); GLUCOSE 126 mg/dL (70-99); POTASSIUM 3.9 MEQ/L (3.7-5.4); SODIUM 137 MEQ/L (136-147); UREA NITROGEN (BUN) 9 mg/dL (9-23)
[2017-10-31 08:40] VITALS: BP 143/68
[2017-10-31 16:11] VITALS: BP 135/65
[2017-11-01 00:25] VITALS: BP 143/63
[2017-11-01 07:29] VITALS: BP 145/69
[2017-11-01 08:51] LABS: BASOPHIL (%) 0.4 % (0-1); EOSINOPHIL (%) 5.2 % (0-5); EOSINOPHIL COUNT 0.3 K/uL (0-0.3); HEMATOCRIT 29.1 % (38.0-50.0); HEMOGLOBIN 9.2 G/DL (12.5-16.6); IMMATURE GRANULOCYTE (%) 0.4 % (0.0-0.7); LYMPHOCYTE (%) 24.8 % (15-42); LYMPHOCYTE COUNT 1.3 K/uL (1.0-2.8); MCH 26.2 PG (29.0-34.0); MCHC 31.6 G/DL (30.0-36.0); MCV 82.9 FL (86-99); MONOCYTE (%) 7.4 % (3-12); MONOCYTE COUNT 0.4 K/uL (0-0.8); NEUTROPHIL (%) 61.8 % (45-76); NEUTROPHIL COUNT 3.3 K/uL (1.8-6.4); PLATELET COUNT 244 K/uL (156-360); RBC DIS.WIDTH-CV 16.8 % (11.8-14.6); RBC DIS.WIDTH-SD 50.8 % (39-53); RED BLOOD COUNT 3.51 M/uL (4.00-5.50); WHITE BLOOD COUNT 5.4 K/uL (4.1-10.2)
[2017-11-01 09:15] LABS: ALBUMIN 3.4 G/DL (3.2-4.8); ALKALINE PHOSPHATASE 324 IU/L (3-129); ALT (GPT) 35 IU/L (3-49); CHLORIDE 103 MEQ/L (99-109); CREATININE 1.1 MG/DL (0.6-1.3); GFR ESTIMATE (CALCULATED) > 59 mL/min/ (58.99-99999); POTASSIUM 4.1 MEQ/L (3.7-5.4); SODIUM 138 MEQ/L (136-147); UREA NITROGEN (BUN) 9 mg/dL (9-23)
[2017-11-01 09:21] LABS: AST (GOT) 17 IU/L (2-34); GLUCOSE 64 mg/dL (70-99); TOTAL BILIRUBIN 0.4 MG/DL (0.0-1.0)
[2017-11-01 15:23] VITALS: BP 141/67
[2017-11-02 00:34] VITALS: BP 153/70
[2017-11-02 07:40] VITALS: BP 129/63
[2017-11-02 13:30] LABS: HEMATOCRIT 31.2 % (38.0-50.0); MCH 26.7 PG (29.0-34.0); MCHC 32.1 G/DL (30.0-36.0); MCV 83.2 FL (86-99); PLATELET COUNT 243 K/uL (156-360); RBC DIS.WIDTH-SD 50.9 % (39-53); RED BLOOD COUNT 3.75 M/uL (4.00-5.50); WHITE BLOOD COUNT 6.5 K/uL (4.1-10.2)
[2017-11-02 13:55] LABS: ALBUMIN 3.5 G/DL (3.2-4.8); ALKALINE PHOSPHATASE 300 IU/L (3-129); ALT (GPT) 25 IU/L (3-49); AST (GOT) 13 IU/L (2-34); CHLORIDE 104 MEQ/L (99-109); CREATININE 1.1 MG/DL (0.6-1.3); DIRECT BILIRUBIN 0.1 mg/dL (0.0-0.3); GFR ESTIMATE (CALCULATED) > 59 mL/min/ (58.99-99999); POTASSIUM 4.7 MEQ/L (3.7-5.4); SODIUM 137 MEQ/L (136-147); TOTAL BILIRUBIN 0.4 MG/DL (0.0-1.0); TOTAL PROTEIN 6.3 G/DL (6.4-8.3); UREA NITROGEN (BUN) 10 mg/dL (9-23)
[2017-11-02 13:58] LABS: GLUCOSE 174 mg/dL (70-99)
[2017-11-02 15:59] VITALS: BP 139/66
[2017-11-02 23:50] VITALS: BP 150/70
[2017-11-03 05:14] LABS: BASOPHIL (%) 0.6 % (0-1); EOSINOPHIL (%) 5.2 % (0-5); EOSINOPHIL COUNT 0.3 K/uL (0-0.3); HEMATOCRIT 29.1 % (38.0-50.0); HEMOGLOBIN 9.4 G/DL (12.5-16.6); IMMATURE GRANULOCYTE (%) 0.6 % (0.0-0.7); LYMPHOCYTE (%) 28.1 % (15-42); LYMPHOCYTE COUNT 1.5 K/uL (1.0-2.8); MCH 26.9 PG (29.0-34.0); MCHC 32.3 G/DL (30.0-36.0); MCV 83.4 FL (86-99); MONOCYTE (%) 7.4 % (3-12); MONOCYTE COUNT 0.4 K/uL (0-0.8); NEUTROPHIL (%) 58.1 % (45-76); NEUTROPHIL COUNT 3.2 K/uL (1.8-6.4); PLATELET COUNT 224 K/uL (156-360); RBC DIS.WIDTH-CV 16.7 % (11.8-14.6); RBC DIS.WIDTH-SD 51.5 % (39-53); RED BLOOD COUNT 3.49 M/uL (4.00-5.50); WHITE BLOOD COUNT 5.4 K/uL (4.1-10.2)
[2017-11-03 05:42] LABS: ALBUMIN 3.5 G/DL (3.2-4.8); CHLORIDE 105 MEQ/L (99-109); CREATININE 1.1 MG/DL (0.6-1.3); GFR ESTIMATE (CALCULATED) > 59 mL/min/ (58.99-99999); POTASSIUM 4.1 MEQ/L (3.7-5.4); SODIUM 136 MEQ/L (136-147); TOTAL BILIRUBIN 0.4 MG/DL (0.0-1.0); TOTAL PROTEIN 6.5 G/DL (6.4-8.3); UREA NITROGEN (BUN) 9 mg/dL (9-23)
[2017-11-03 05:43] LABS: ALKALINE PHOSPHATASE 262 IU/L (3-129); ALT (GPT) 20 IU/L (3-49); AST (GOT) 12 IU/L (2-34); GLUCOSE 86 mg/dL (70-99)
[2017-11-03 08:00] VITALS: BP 135/63
[2017-11-03 10:23] VITALS: BP 147/69
[2017-11-03] MEDS ORDERED: FERROUS SULFAT325 MG PO (11:19)
[2017-11-03] MEDS ORDERED: GABAPENTIN300 MG PO (11:20)
[2017-11-03] MEDS ORDERED: EFFEXOR XR37.5 MG PO (11:21)
[2017-11-03] MEDS ORDERED: DILTIAZEM 24HR120 MG PO (11:23)
== END 2017-11-03 13:38 | disposition home or self-care (01) | DRG 444 ==
LOC: EME 13:17 → EDOF 17:42 → 3EAST 17:42 → ENRESERV 17:48 → 3EAST 20:06
PROVIDERS: Emergency Medicine; Hospitalist; Internal Medicine; Internal Medicine Gastroenterology; Physician Assistant; Student in an Organized Health Care Education/Training Program
PROC: 0DB98ZZ Excision of Duodenum, Via Natural or Artificial Opening Endoscopic (ICD-10-PCS; principal; 2017-10-19)
PROC: 02HV33Z Insertion of Infusion Device into Superior Vena Cava, Percutaneous Approach (ICD-10-PCS; principal; 2017-10-19)
PROC: 0FC98ZZ Extirpation of Matter from Common Bile Duct, Via Natural or Artificial Opening Endoscopic (ICD-10-PCS; principal; 2017-10-19)
DX: K80.70 Calculus of gallbladder and bile duct without cholecystitis without obstruction (principal); M54.9 Dorsalgia, unspecified; E78.5 Hyperlipidemia, unspecified; N17.9 Acute kidney failure, unspecified; M54.40 Lumbago with sciatica, unspecified side; G89.29 Other chronic pain; M46.46 Discitis, unspecified, lumbar region; N18.6 End stage renal disease; D64.9 Anemia, unspecified; I12.0 Hypertensive chronic kidney disease with stage 5 chronic kidney disease or end stage renal disease; E11.22 Type 2 diabetes mellitus with diabetic chronic kidney disease; M86.9 Osteomyelitis, unspecified; E11.69 Type 2 diabetes mellitus with other specified complication; Z83.3 Family history of diabetes mellitus; Z94.0 Kidney transplant status; Z85.47 Personal history of malignant neoplasm of testis; Z98.1 Arthrodesis status; F43.20 Adjustment disorder, unspecified; Z86.010 Personal history of colon polyps; Z79.899 Other long term (current) drug therapy; Z87.891 Personal history of nicotine dependence
CPT/HCPCS: 71045; 74018; 74181; 74328; 76705; 80048; 80053; 80076; 80202; 81003; 82248; 82948; 83605; 83690; 84075; 84484; 85025; 85027; 85610; 85730; 87040; 87081; 87186; 88305; 97530 GO; 97530 GP; 99281; 99285; G0378; G8978 GP CI; G8979 GP CH; G8987 GO CM; G8988 GO CH; J0330; J0360; J0696; J1170; J1650; J1815; J2405; J2997; J3010; J3370; J7030; J7050; J7120; J7507; J7517; Q0164

== ENCOUNTER 2017-11-07 19:08 | Emergency (ER) | payer OTHER ==
[~2017-11-07] VITALS: Ht 182.9 cm; Wt 84.9 kg
[~2017-11-07 19:08] MED LIST changes: +ASCORBIC ACID250 MG PO; +COMPAZINE10 MG PO; +EFFEXOR XR37.5 MG PO; +FENOGLIDE40 MG PO; +FLEXERIL5 MG PO; +HUMALOG100 UNIT/2 SC; +ROCEPHIN2 GM/50 ML IV; +ROXICODONE5 MG PO; +VANCOMYCIN1 GM/150 M IV
[2017-11-07 21:40] LABS: BASOPHIL (%) 0.2 % (0-1); EOSINOPHIL (%) 0.7 % (0-5); EOSINOPHIL COUNT 0.1 K/uL (0-0.3); HEMATOCRIT 27.7 % (38.0-50.0); HEMOGLOBIN 9.1 G/DL (12.5-16.6); IMMATURE GRANULOCYTE (%) 0.6 % (0.0-0.7); LYMPHOCYTE (%) 12.8 % (15-42); LYMPHOCYTE COUNT 1.2 K/uL (1.0-2.8); MCH 26.7 PG (29.0-34.0); MCHC 32.9 G/DL (30.0-36.0); MCV 81.2 FL (86-99); MONOCYTE (%) 7.1 % (3-12); MONOCYTE COUNT 0.6 K/uL (0-0.8); NEUTROPHIL (%) 78.6 % (45-76); PLATELET COUNT 260 K/uL (156-360); RBC DIS.WIDTH-CV 16.2 % (11.8-14.6); RBC DIS.WIDTH-SD 47.9 % (39-53); RED BLOOD COUNT 3.41 M/uL (4.00-5.50)
[2017-11-07 21:50] LABS: ALBUMIN 3.9 g/dL (3.2-4.8); CHLORIDE 103 mEq/L (99-109); POTASSIUM 4.6 mEq/L (3.7-5.4); SODIUM 137 mEq/L (136-147)
[2017-11-07 21:54] LABS: TOTAL BILIRUBIN 0.3 mg/dL (0.0-1.0)
[2017-11-07 21:56] LABS: ALKALINE PHOSPHATASE 200 IU/L (3-129); CREATININE 1.5 mg/dL (0.6-1.3); GFR ESTIMATE (CALCULATED) 51 mL/min/ (58.99-99999)
[2017-11-07 21:57] LABS: UREA NITROGEN (BUN) 21 mg/dL (9-23)
[2017-11-07 21:58] LABS: AST (GOT) 15 IU/L (2-34)
[2017-11-07 21:59] LABS: ALT (GPT) 14 IU/L (3-49)
[2017-11-07 22:14] LABS: GLUCOSE 120 mg/dL (70-99); TOTAL PROTEIN 7.2 g/dL (6.4-8.3)
[2017-11-07 22:24] LABS: ERTH.SED.RATE 41 MM/HR (0-20)
[2017-11-07 22:42] LABS: C-REACTIVE PROTEIN 135.4 MG/L (0-10)
[2017-11-08 02:15] VITALS: BP 164/66
== END 2017-11-08 02:22 | disposition short-term general hospital (02) ==
LOC: EME 19:08
PROVIDERS: Physician Assistant
DX: M48.56XA Collapsed vertebra, not elsewhere classified, lumbar region, initial encounter for fracture (principal); M46.26 Osteomyelitis of vertebra, lumbar region; I12.9 Hypertensive chronic kidney disease with stage 1 through stage 4 chronic kidney disease, or unspecified chronic kidney disease; N18.9 Chronic kidney disease, unspecified; Z85.47 Personal history of malignant neoplasm of testis; Z94.0 Kidney transplant status; E78.5 Hyperlipidemia, unspecified; F32.9 Major depressive disorder, single episode, unspecified; F41.9 Anxiety disorder, unspecified; Z87.891 Personal history of nicotine dependence; Z88.6 Allergy status to analgesic agent
CPT/HCPCS: 71045; 72131; 80053; 81003; 83605; 85025 91; 85651; 86140; 87040; 99281; 99285; J2270; J7030

== ENCOUNTER 2017-11-22 14:10 | Emergency (ER) | payer OTHER ==
[~2017-11-22] VITALS: Ht 182.9 cm; Wt 86.6 kg
[2017-11-22 19:08] VITALS: BP 176/87
== END 2017-11-22 19:10 | disposition short-term general hospital (02) ==
LOC: EME 14:10
DX: M54.5 Low back pain (principal); W01.0XXA Fall on same level from slipping, tripping and stumbling without subsequent striking against object, initial encounter; Z98.890 Other specified postprocedural states; G89.29 Other chronic pain; I12.9 Hypertensive chronic kidney disease with stage 1 through stage 4 chronic kidney disease, or unspecified chronic kidney disease; N18.9 Chronic kidney disease, unspecified; E78.5 Hyperlipidemia, unspecified; Z85.47 Personal history of malignant neoplasm of testis; Z94.0 Kidney transplant status; F32.9 Major depressive disorder, single episode, unspecified; F41.9 Anxiety disorder, unspecified; Z87.891 Personal history of nicotine dependence; Z88.6 Allergy status to analgesic agent
CPT/HCPCS: 72131; 93005; 99281; 99285; G8978 GP CM; G8979 GP CL; G8980 GP CM; G8987 GO CM; G8988 GO CK; G8989 GO CM; J2270; J3010

== ENCOUNTER 2018-01-24 14:40 | Observation (INO) | payer OTHER ==
[~2018-01-24] VITALS: Ht 182.9 cm; Wt 80.5 kg
[2018-01-24 18:26] LABS: HEMATOCRIT 30.7 % (38.0-50.0); HEMOGLOBIN 10.5 G/DL (12.5-16.6); MCH 26.6 PG (29.0-34.0); MCHC 34.2 G/DL (30.0-36.0); MCV 77.9 FL (86-99); PLATELET COUNT 242 K/uL (156-360); RBC DIS.WIDTH-CV 14.5 % (11.8-14.6); RED BLOOD COUNT 3.94 M/uL (4.00-5.50); WHITE BLOOD COUNT 6.9 K/uL (4.1-10.2)
[2018-01-24 18:34] LABS: ALBUMIN 4.3 g/dL (3.2-4.8); CHLORIDE 101 mEq/L (99-109); SODIUM 138 mEq/L (136-147)
[2018-01-24 18:36] LABS: GLUCOSE 148 mg/dL (70-99); TOTAL PROTEIN 7.8 g/dL (6.4-8.3)
[2018-01-24 18:38] LABS: TOTAL BILIRUBIN 0.5 mg/dL (0.0-1.0)
[2018-01-24 18:40] LABS: ALKALINE PHOSPHATASE 127 IU/L (3-129); CREATININE 1.7 mg/dL (0.6-1.3); GFR ESTIMATE (CALCULATED) 44 mL/min/ (58.99-99999)
[2018-01-24 18:41] LABS: UREA NITROGEN (BUN) 27 mg/dL (9-23)
[2018-01-24 18:42] LABS: AST (GOT) 10 IU/L (2-34)
[2018-01-24 18:43] LABS: ALT (GPT) 7 IU/L (3-49)
[2018-01-24 21:41] VITALS: BP 156/80
[2018-01-24 23:36] VITALS: BP 134/67
[2018-01-25 03:32] VITALS: BP 152/80
[2018-01-25 05:40] LABS: HEMATOCRIT 28.1 % (38.0-50.0); HEMOGLOBIN 9.3 G/DL (12.5-16.6); MCH 26.1 PG (29.0-34.0); MCHC 33.1 G/DL (30.0-36.0); MCV 78.9 FL (86-99); PLATELET COUNT 200 K/uL (156-360); RBC DIS.WIDTH-CV 14.5 % (11.8-14.6); RBC DIS.WIDTH-SD 41.9 % (39-53); RED BLOOD COUNT 3.56 M/uL (4.00-5.50); WHITE BLOOD COUNT 5.2 K/uL (4.1-10.2)
[2018-01-25 05:46] LABS: CHLORIDE 102 MEQ/L (99-109); CREATININE 1.4 MG/DL (0.6-1.3); GFR ESTIMATE (CALCULATED) 55 mL/min/ (58.99-99999); GLUCOSE 196 mg/dL (70-99); POTASSIUM 3.4 MEQ/L (3.7-5.4); SODIUM 134 MEQ/L (136-147); UREA NITROGEN (BUN) 25 mg/dL (9-23)
[2018-01-25 07:35] VITALS: BP 134/64
[2018-01-25 09:27] LABS: C-REACTIVE PROTEIN 26.1 MG/L (0-10)
[2018-01-25 12:10] VITALS: BP 156/76
[2018-01-25 13:08] LABS: APPEARANCE CLEAR ((CLEAR)); BILIRUBIN NEGATIVE; BLOOD NEGATIVE; COLOR YELLOW ((YELLOW)); GLUCOSE (STRIP) NEGATIVE; KETONES NEGATIVE; LEUKOCYTES NEGATIVE; NITRITE NEGATIVE; PROTEIN (STRIP) 30; SPECIFIC GRAVITY 1.021 (1.000-1.030); UCUL ADDED? NO; UROBILINOGEN 0.2 MG/DL (0.2-1.0)
[2018-01-25 17:04] VITALS: BP 135/61
[2018-01-25 19:20] VITALS: BP 156/71
[2018-01-26 00:02] VITALS: BP 156/77
[2018-01-26 07:14] VITALS: BP 122/59
[2018-01-26 10:43] LABS: HEMATOCRIT 31.8 % (38.0-50.0); HEMOGLOBIN 10.5 G/DL (12.5-16.6); MCH 26.6 PG (29.0-34.0); MCV 80.5 FL (86-99); PLATELET COUNT 237 K/uL (156-360); RBC DIS.WIDTH-CV 14.7 % (11.8-14.6); RBC DIS.WIDTH-SD 42.7 % (39-53); RED BLOOD COUNT 3.95 M/uL (4.00-5.50)
[2018-01-26 11:15] LABS: CHLORIDE 100 MEQ/L (99-109); CREATININE 1.5 MG/DL (0.6-1.3); GFR ESTIMATE (CALCULATED) 51 mL/min/ (58.99-99999); GLUCOSE 231 mg/dL (70-99); POTASSIUM 4.2 MEQ/L (3.7-5.4); SODIUM 130 MEQ/L (136-147); UREA NITROGEN (BUN) 19 mg/dL (9-23)
[2018-01-26 15:49] VITALS: BP 118/58
[2018-01-27 03:55] VITALS: BP 138/65
[2018-01-27 08:18] VITALS: BP 116/54
[2018-01-27 11:37] LABS: CHLORIDE 104 MEQ/L (99-109); CREATININE 1.4 MG/DL (0.6-1.3); GFR ESTIMATE (CALCULATED) 55 mL/min/ (58.99-99999); GLUCOSE 203 mg/dL (70-99); POTASSIUM 4.3 MEQ/L (3.7-5.4); SODIUM 134 MEQ/L (136-147); UREA NITROGEN (BUN) 16 mg/dL (9-23)
[2018-01-27] MEDS ORDERED: DOXYCYCLINE HY100 M3 PO (16:20)
[2018-01-27 17:46] VITALS: BP 120/73
== END 2018-01-27 18:00 | disposition home or self-care (01) ==
LOC: EME 14:40 → EDOF 19:51 → 3EAST 19:51 → EDOF 19:51 → ENRESERV 19:58 → 3EAST 20:55
PROVIDERS: Emergency Medicine Emergency Medical Services; Hospitalist; Physician Assistant
DX: G89.29 Other chronic pain (principal); M54.41 Lumbago with sciatica, right side; R26.89 Other abnormalities of gait and mobility; Z98.1 Arthrodesis status; N17.9 Acute kidney failure, unspecified; Z94.0 Kidney transplant status; I12.9 Hypertensive chronic kidney disease with stage 1 through stage 4 chronic kidney disease, or unspecified chronic kidney disease; N18.9 Chronic kidney disease, unspecified; R79.82 Elevated C-reactive protein (CRP); D64.9 Anemia, unspecified; E78.5 Hyperlipidemia, unspecified; E11.22 Type 2 diabetes mellitus with diabetic chronic kidney disease; Z79.899 Other long term (current) drug therapy; Z60.2 Problems related to living alone; Z85.47 Personal history of malignant neoplasm of testis; Z87.891 Personal history of nicotine dependence; Z88.6 Allergy status to analgesic agent; Z79.4 Long term (current) use of insulin
CPT/HCPCS: 72131; 80048; 80053; 81003; 82948; 85027; 86140; 99281; 99285; G0378; J1644; J1815; J3010; J7030; J7507; J7517

== ENCOUNTER 2018-01-28 16:28 | Emergency (ER) | payer OTHER ==
[~2018-01-28] VITALS: Ht 182.9 cm; Wt 82.8 kg
[~2018-01-28 16:28] MED LIST changes: +DOXYCYCLINE HY100 M3 PO
[2018-01-28 17:17] LABS: HEMATOCRIT 27.7 % (38.0-50.0); HEMOGLOBIN 9.2 G/DL (12.5-16.6); MCH 26.6 PG (29.0-34.0); MCHC 33.2 G/DL (30.0-36.0); MCV 80.1 FL (86-99); PLATELET COUNT 194 K/uL (156-360); RBC DIS.WIDTH-CV 14.6 % (11.8-14.6); RED BLOOD COUNT 3.46 M/uL (4.00-5.50); WHITE BLOOD COUNT 4.8 K/uL (4.1-10.2)
[2018-01-28 17:31] LABS: CHLORIDE 104 mEq/L (99-109); POTASSIUM 4.1 mEq/L (3.7-5.4); SODIUM 135 mEq/L (136-147)
[2018-01-28 17:33] LABS: GLUCOSE 247 mg/dL (70-99)
[2018-01-28 17:37] LABS: CREATININE 1.4 mg/dL (0.6-1.3); GFR ESTIMATE (CALCULATED) 55 mL/min/ (58.99-99999)
[2018-01-28 17:38] LABS: UREA NITROGEN (BUN) 15 mg/dL (9-23)
[2018-01-28 18:46] LABS: C-REACTIVE PROTEIN 72.6 MG/L (0-10)
[2018-01-28 23:04] VITALS: BP 189/75
== END 2018-01-28 23:33 | disposition short-term general hospital (02) ==
LOC: EME 16:28
PROVIDERS: Emergency Medicine
DX: M54.5 Low back pain (principal); G89.29 Other chronic pain; R79.82 Elevated C-reactive protein (CRP); Z87.39 Personal history of other diseases of the musculoskeletal system and connective tissue; E78.5 Hyperlipidemia, unspecified; I12.9 Hypertensive chronic kidney disease with stage 1 through stage 4 chronic kidney disease, or unspecified chronic kidney disease; N18.9 Chronic kidney disease, unspecified; Z94.0 Kidney transplant status; F32.9 Major depressive disorder, single episode, unspecified; F41.9 Anxiety disorder, unspecified; Z87.891 Personal history of nicotine dependence
CPT/HCPCS: 80048; 85027; 86140; 99281; 99285; J3010; J7030